=== PATIENT | female | born 1990 | race African-American/Black ===

== ENCOUNTER 2017-09-06 19:05 | Emergency (ER) | payer MEDICAID ==
[~2017-09-06] VITALS: Ht 170.2 cm; Wt 81.6 kg
[2017-09-06 19:16] VITALS: BP 102/60
[2017-09-06] MEDS ORDERED: KETOROLAC TROMETH 60MG/2ML VIAL IM ONE (20:00)
== END 2017-09-06 20:45 | disposition home or self-care (01) ==
LOC: ER 19:05
DX: J02.9 Acute pharyngitis, unspecified (principal); H61.21 Impacted cerumen, right ear; Z88.8 Allergy status to other drugs, medicaments and biological substances
CPT/HCPCS: 96372; 99283; J1885; 12001; 94761